=== PATIENT | male | born 1950 | race African-American/Black ===

== ENCOUNTER 2022-07-04 09:11 | Inpatient (IN) | payer MEDICARE, MEDICAID ==
[2022-07-04 09:39] LABS: #Monocytes 0.5 10x3/uL (0.0-1.1); %Basophils 0.1 % (0.0-2.0); %Lymphocytes 10.6 % (18.0-47.0); %Monocytes 5.4 % (0.0-10.0); %Neutrophils 83.7 % (40.0-75.0); Hemoglobin 9.6 g/dL (13.5-17.5); Mean Corpuscular HGB CONC 33.4 g/dL (32.0-36.0); Mean Corpuscular Hemoglobin 25.2 pg (27.0-33.0); Mean Corpuscular Volume 75.3 fl (81.2-95.1); Mean Platelet Volume 8.7 fl (7.4-10.4); Platelet Count 382 10x3/uL (150-450); RBC Distribution Width 15.9 % (11.5-14.5); Red Blood Cell (RBC) Count 3.81 10x6/uL (4.32-5.72); White Blood Cell (WBC) Count 8.4 10x3/uL (3.5-10.5)
[2022-07-04 09:52] LABS: ALT (SGPT) 11 U/L (8-55); AST (SGOT) 34 U/L (5-34); Albumin 3.2 g/dL (3.4-4.8); Alkaline Phosphatase 112 U/L (40-110); Anion Gap 13 mmol/L (10-20); BUN (Urea Nitrogen) 12 mg/dL (8.4-25.7); Bilirubin, Total 1.3 mg/dL (0.2-1.2); CK (CPK) 369 U/L (30-200); Calc. Creatinine Clearance 0 mL/min (70-130); Calcium 8.8 mg/dL (7.8-10.44); Carbon Dioxide 26 mmol/L (23-31); Chloride 89 mmol/L (98-107); Estimated GFR 105; Glucose 142 mg/dL (80-115); Potassium 4.2 mmol/L (3.5-5.1); Protein, Total 6.2 g/dL (5.8-8.1); Sodium 124 mmol/L (136-145)
[2022-07-04] MEDS ORDERED: Fentanyl 100 MCG/2 ML VIAL ONE (10:16)
[2022-07-04] MEDS ORDERED: Ondansetron ODT 4 MG TAB PO PRN (16:30)
[2022-07-04] MEDS ORDERED: Acetaminophen 325 MG TAB PO PRN (16:30)
[2022-07-04] MEDS ORDERED: Sodium Chloride 0.9% 1,000 ML IV SCH (16:30)
[2022-07-04] MEDS ORDERED: Ondansetron PF 4 MG/2 ML Vial IVP PRN (16:30)
[2022-07-04] MEDS ORDERED: Dextrose 50% Abboject 50 ML SYRINGE SLOW IVP PRN (17:43)
[2022-07-04] MEDS ORDERED: Dextrose 5% in Water 1,000 ML IV PRN (17:43)
[2022-07-04 18:18] VITALS: BMI 17.9
[2022-07-04 19:25] LABS: Anion Gap 12 mmol/L (10-20); BUN (Urea Nitrogen) 11 mg/dL (8.4-25.7); Calc. Creatinine Clearance 85 mL/min (70-130); Calcium 8.3 mg/dL (7.8-10.44); Carbon Dioxide 29 mmol/L (23-31); Chloride 89 mmol/L (98-107); Estimated GFR 109; Potassium 4.1 mmol/L (3.5-5.1); Sodium 126 mmol/L (136-145)
[2022-07-04 19:27] LABS: Glucose 56 mg/dL (80-115)
[2022-07-04 23:47] LABS: Anion Gap 11 mmol/L (10-20); BUN (Urea Nitrogen) 11 mg/dL (8.4-25.7); Calc. Creatinine Clearance 88 mL/min (70-130); Calcium 8.4 mg/dL (7.8-10.44); Carbon Dioxide 29 mmol/L (23-31); Chloride 90 mmol/L (98-107); Estimated GFR 110; Glucose 107 mg/dL (80-115); Potassium 3.8 mmol/L (3.5-5.1); Sodium 126 mmol/L (136-145)
[2022-07-05 05:08] LABS: #Monocytes 0.6 10x3/uL (0.0-1.1); #Neutrophils 3.7 10x3/uL (1.5-8.4); %Basophils 0.2 % (0.0-2.0); %Eosinophils 0.2 % (0.0-6.0); %Monocytes 9.5 % (0.0-10.0); %Neutrophils 59.9 % (40.0-75.0); Hemoglobin 9.5 g/dL (13.5-17.5); Mean Corpuscular HGB CONC 34.3 g/dL (32.0-36.0); Mean Corpuscular Hemoglobin 25.3 pg (27.0-33.0); Mean Corpuscular Volume 73.7 fl (81.2-95.1); Mean Platelet Volume 8.9 fl (7.4-10.4); Platelet Count 374 10x3/uL (150-450); RBC Distribution Width 15.8 % (11.5-14.5); Red Blood Cell (RBC) Count 3.76 10x6/uL (4.32-5.72); White Blood Cell (WBC) Count 6.1 10x3/uL (3.5-10.5)
[2022-07-05 05:24] LABS: Anion Gap 12 mmol/L (10-20); BUN (Urea Nitrogen) 8 mg/dL (8.4-25.7); Calc. Creatinine Clearance 85 mL/min (70-130); Calcium 8.2 mg/dL (7.8-10.44); Carbon Dioxide 30 mmol/L (23-31); Cardiac Risk 1.9 (Less than 4.5); Chloride 91 mmol/L (98-107); Cholesterol 75 mg/dl (< 200 Desired); Estimated GFR 109; HDL Cholesterol 40 mg/dL (>60 Neg Risk); LDL Cholesterol, Calculated 27 mg/dL; Sodium 129 mmol/L (136-145); Triglycerides 39 mg/dL (Less than 150)
[2022-07-05 05:41] LABS: Glucose 45 mg/dL (80-115)
[2022-07-05 05:43] LABS: Amphetamine Not Detected (NotDetected); Barbiturates Screen Not Detected (NotDetected); Benzodiazepine Screen Not Detected (NotDetected); Cocaine Metabolite Screen Not Detected (NotDetected); Methadone Not Detected (NotDetected); Methamphetamine Not Detected (NotDetected); Opiate Screen Not Detected (NotDetected); Oxycodone Screen Not Detected (NotDetected); Phencyclidine (PCP) Not Detected (NotDetected); THC/Cannabinoid Screen Not Detected (NotDetected); Tricyclic Screen Not Detected (NotDetected)
[2022-07-05] MEDS: Megestrol Acetate 400 MG/10 ML UDCUP PO SCH (07:40)
[2022-07-05 09:36] LABS: Iron 32 ug/dL (65-175); Iron Binding Capacity, Total 135 mcg/dL (261-462)
[2022-07-05] MEDS ORDERED: Iopamidol 300 61% 100 ML VIAL FS ONE (09:43)
[2022-07-05 11:54] LABS: Anion Gap 11 mmol/L (10-20); BUN (Urea Nitrogen) 9 mg/dL (8.4-25.7); Calc. Creatinine Clearance 88 mL/min (70-130); Calcium 8.1 mg/dL (7.8-10.44); Carbon Dioxide 29 mmol/L (23-31); Chloride 90 mmol/L (98-107); Estimated GFR 110; Glucose 97 mg/dL (80-115); Potassium 4.1 mmol/L (3.5-5.1); Sodium 126 mmol/L (136-145)
[2022-07-05] MEDS: Sodium Chloride 1 GM TAB PO SCH ×2 (14:47→20:35)
[2022-07-06 05:56] LABS: Anion Gap 10 mmol/L (10-20); BUN (Urea Nitrogen) 8 mg/dL (8.4-25.7); Calc. Creatinine Clearance 83 mL/min (70-130); Calcium 8.1 mg/dL (7.8-10.44); Carbon Dioxide 31 mmol/L (23-31); Chloride 92 mmol/L (98-107); Estimated GFR 108; Glucose 112 mg/dL (80-115); Iron 25 ug/dL (65-175); Iron Binding Capacity, Total 138 mcg/dL (261-462); Magnesium 1.5 mg/dL (1.6-2.6); Potassium 3.8 mmol/L (3.5-5.1); Sodium 129 mmol/L (136-145)
[2022-07-06 06:06] LABS: #Monocytes 0.7 10x3/uL (0.0-1.1); #Neutrophils 4.3 10x3/uL (1.5-8.4); %Eosinophils 0.1 % (0.0-6.0); %Lymphocytes 24.9 % (18.0-47.0); %Monocytes 9.7 % (0.0-10.0); Hemoglobin 9.6 g/dL (13.5-17.5); Mean Corpuscular HGB CONC 34.2 g/dL (32.0-36.0); Mean Corpuscular Hemoglobin 25.3 pg (27.0-33.0); Mean Corpuscular Volume 73.9 fl (81.2-95.1); Mean Platelet Volume 9.1 fl (7.4-10.4); Platelet Count 399 10x3/uL (150-450); RBC Distribution Width 15.9 % (11.5-14.5); White Blood Cell (WBC) Count 6.7 10x3/uL (3.5-10.5)
[2022-07-06] MEDS: Megestrol Acetate 400 MG/10 ML UDCUP PO SCH (10:37)
[2022-07-06] MEDS: Enoxaparin Sodium 30 MG/0.3 ML SYRINGE SC SCH (10:37)
[2022-07-06] MEDS: Ferrous Sulfate 325 MG TAB PO SCH (10:38)
[2022-07-06] MEDS: Sodium Chloride 1 GM TAB PO SCH ×3 (10:40→20:57)
[2022-07-06] MEDS ORDERED: Magnesium 2 GM/50 ML(in water) 2 GM in Premix Bag 1 BAG IVPB SCH (11:00)
[2022-07-07 05:20] LABS: #Monocytes 0.6 10x3/uL (0.0-1.1); #Neutrophils 5.6 10x3/uL (1.5-8.4); %Basophils 0.1 % (0.0-2.0); %Lymphocytes 20.7 % (18.0-47.0); %Monocytes 7.9 % (0.0-10.0); Hemoglobin 8.5 g/dL (13.5-17.5); Mean Corpuscular HGB CONC 34.8 g/dL (32.0-36.0); Mean Corpuscular Hemoglobin 25.5 pg (27.0-33.0); Mean Corpuscular Volume 73.3 fl (81.2-95.1); Mean Platelet Volume 9.1 fl (7.4-10.4); Platelet Count 341 10x3/uL (150-450); Red Blood Cell (RBC) Count 3.33 10x6/uL (4.32-5.72); White Blood Cell (WBC) Count 7.8 10x3/uL (3.5-10.5)
[2022-07-07 05:28] LABS: ALT (SGPT) 10 U/L (8-55); AST (SGOT) 18 U/L (5-34); Albumin 2.5 g/dL (3.4-4.8); Alkaline Phosphatase 92 U/L (40-110); Anion Gap 12 mmol/L (10-20); BUN (Urea Nitrogen) 10 mg/dL (8.4-25.7); Bilirubin, Total 0.5 mg/dL (0.2-1.2); Calc. Creatinine Clearance 88 mL/min (70-130); Calcium 7.8 mg/dL (7.8-10.44); Carbon Dioxide 28 mmol/L (23-31); Chloride 96 mmol/L (98-107); Estimated GFR 110; Globulin 2.6 g/dL (2.4-3.5); Glucose 101 mg/dL (80-115); Magnesium 1.7 mg/dL (1.6-2.6); Potassium 3.9 mmol/L (3.5-5.1); Protein, Total 5.1 g/dL (5.8-8.1); Sodium 132 mmol/L (136-145)
[2022-07-07] MEDS: Enoxaparin Sodium 30 MG/0.3 ML SYRINGE SC SCH (09:06)
[2022-07-07] MEDS: Megestrol Acetate 400 MG/10 ML UDCUP PO SCH (09:06)
[2022-07-07] MEDS: Ferrous Sulfate 325 MG TAB PO SCH (09:06)
[2022-07-07] MEDS: Sodium Chloride 1 GM TAB PO SCH ×3 (09:09→20:40)
[2022-07-07] MEDS ORDERED: Magnesium 2 GM/50 ML(in water) 2 GM in Premix Bag 1 BAG IVPB SCH (10:00)
[2022-07-08 04:31] LABS: #Monocytes 0.7 10x3/uL (0.0-1.1); #Neutrophils 4.8 10x3/uL (1.5-8.4); %Basophils 0.3 % (0.0-2.0); %Eosinophils 0.1 % (0.0-6.0); %Lymphocytes 23.8 % (18.0-47.0); %Monocytes 9.2 % (0.0-10.0); %Neutrophils 66.5 % (40.0-75.0); Hemoglobin 8.5 g/dL (13.5-17.5); Mean Corpuscular HGB CONC 34.6 g/dL (32.0-36.0); Mean Corpuscular Hemoglobin 25.6 pg (27.0-33.0); Mean Corpuscular Volume 74.1 fl (81.2-95.1); Platelet Count 369 10x3/uL (150-450); RBC Distribution Width 16.2 % (11.5-14.5); Red Blood Cell (RBC) Count 3.32 10x6/uL (4.32-5.72); White Blood Cell (WBC) Count 7.3 10x3/uL (3.5-10.5)
[2022-07-08 04:39] LABS: Anion Gap 9 mmol/L (10-20); BUN (Urea Nitrogen) 9 mg/dL (8.4-25.7); Calc. Creatinine Clearance 92 mL/min (70-130); Carbon Dioxide 28 mmol/L (23-31); Chloride 97 mmol/L (98-107); Estimated GFR 112; Glucose 99 mg/dL (80-115); Magnesium 1.7 mg/dL (1.6-2.6); Sodium 130 mmol/L (136-145)
[2022-07-08] MEDS ORDERED: Magnesium 2 GM/50 ML(in water) 2 GM in Premix Bag 1 BAG IVPB SCH (08:00)
[2022-07-08] MEDS ORDERED: Magnesium 2 GM/50 ML BAG (IN WATER) ONE (08:01)
[2022-07-08] MEDS: Megestrol Acetate 400 MG/10 ML UDCUP PO SCH (08:06)
[2022-07-08] MEDS: Ferrous Sulfate 325 MG TAB PO SCH (08:07)
[2022-07-08] MEDS: Sodium Chloride 1 GM TAB PO SCH ×3 (08:07→20:16)
[2022-07-08] MEDS: Enoxaparin Sodium 30 MG/0.3 ML SYRINGE SC SCH (08:07)
[2022-07-09 04:22] LABS: #Monocytes 0.7 10x3/uL (0.0-1.1); #Neutrophils 6.1 10x3/uL (1.5-8.4); %Basophils 0.1 % (0.0-2.0); %Lymphocytes 19.6 % (18.0-47.0); %Monocytes 8.1 % (0.0-10.0); Hemoglobin 8.3 g/dL (13.5-17.5); Mean Corpuscular HGB CONC 33.9 g/dL (32.0-36.0); Mean Corpuscular Hemoglobin 25.5 pg (27.0-33.0); Mean Corpuscular Volume 75.2 fl (81.2-95.1); Platelet Count 385 10x3/uL (150-450); RBC Distribution Width 16.4 % (11.5-14.5); Red Blood Cell (RBC) Count 3.26 10x6/uL (4.32-5.72); White Blood Cell (WBC) Count 8.5 10x3/uL (3.5-10.5)
[2022-07-09 04:37] LABS: Anion Gap 8 mmol/L (10-20); BUN (Urea Nitrogen) 7 mg/dL (8.4-25.7); Calc. Creatinine Clearance 96 mL/min (70-130); Calcium 8.2 mg/dL (7.8-10.44); Carbon Dioxide 28 mmol/L (23-31); Chloride 98 mmol/L (98-107); Estimated GFR 113; Glucose 109 mg/dL (80-115); Magnesium 1.5 mg/dL (1.6-2.6); Potassium 3.9 mmol/L (3.5-5.1); Sodium 130 mmol/L (136-145)
[2022-07-09 07:31] VITALS: TEMP 98.3
[2022-07-09] MEDS: Magnesium 2 GM/50 ML(in water) 2 GM in Premix Bag 1 BAG IVPB SCH ×2 (08:02→10:10)
[2022-07-09] MEDS: Enoxaparin Sodium 30 MG/0.3 ML SYRINGE SC SCH (08:02)
[2022-07-09] MEDS: Megestrol Acetate 400 MG/10 ML UDCUP PO SCH (08:02)
[2022-07-09] MEDS: Ferrous Sulfate 325 MG TAB PO SCH (08:03)
[2022-07-09] MEDS: Sodium Chloride 1 GM TAB PO SCH (08:03)
[2022-07-09 10:26] VITALS: BP 110/61
== END 2022-07-09 11:55 | DRG 180 ==
LOC: CSHERS 09:11 → CSHTELE 17:28 → OBSVTOIN 07-05 07:58
PROVIDERS: ADMIT Family Medicine; ATTEND Internal Medicine
DX: C34.12 Malignant neoplasm of upper lobe, left bronchus or lung (principal); E43 Unspecified severe protein-calorie malnutrition; G93.41 Metabolic encephalopathy; E22.2 Syndrome of inappropriate secretion of antidiuretic hormone; Z68.1 Body mass index [BMI] 19.9 or less, adult; R91.8 Other nonspecific abnormal finding of lung field; K21.9 Gastro-esophageal reflux disease without esophagitis; I10 Essential (primary) hypertension; E11.649 Type 2 diabetes mellitus with hypoglycemia without coma; F39 Unspecified mood [affective] disorder; D50.9 Iron deficiency anemia, unspecified; I95.1 Orthostatic hypotension; E83.42 Hypomagnesemia; R62.7 Adult failure to thrive; Z98.890 Other specified postprocedural states; Z79.899 Other long term (current) drug therapy; Z20.822 Contact with and (suspected) exposure to COVID-19
CPT/HCPCS: 36415; 36416; 70450; 71045; 71260; 74177; 80048; 80053; 80061; 80306; 82550; 82728; 83540; 83550; 83735; 83930; 83935; 84300; 84443; 85025; 85046; 94760; G0378; J1650; J3010; J3475; Q9967; U0003; U0005